=== PATIENT | female | born 2000 | race Caucasian/White ===

== ENCOUNTER 2018-06-01 07:54 | Emergency (ER) | payer MEDICAID ==
[~2018-06-01] VITALS: Ht 165.1 cm; Wt 90.0 kg
[~2018-06-01 07:54] MED LIST: AMOXICILLIN875 MG OR; NO HOME MEDS
[2018-06-01] MEDS ORDERED: ERYTHROMYCIN O3.5 GM OU (08:21)
[2018-06-01] MEDS ORDERED: ACULAR LS0.4 % OD (08:21)
[2018-06-01 08:33] VITALS: BP 118/76
== END 2018-06-01 08:41 | disposition home or self-care (01) ==
LOC: ED 07:54
DX: H10.31 Unspecified acute conjunctivitis, right eye (principal); H57.11 Ocular pain, right eye

== ENCOUNTER 2018-09-19 23:30 | Emergency (ER) | payer MEDICAID ==
[~2018-09-19] VITALS: Ht 167.6 cm; Wt 86.3 kg
[~2018-09-19 23:30] MED LIST changes: +ACULAR LS0.4 % OD; +ERYTHROMYCIN O3.5 GM OU
[2018-09-19] MEDS ORDERED: TOBRADEX 2.5 ML OS (23:58)
[2018-09-20 00:15] VITALS: BP 144/81
== END 2018-09-20 00:15 | disposition home or self-care (01) ==
LOC: ED 23:30
DX: H18.822 Corneal disorder due to contact lens, left eye (principal); H57.12 Ocular pain, left eye; X58.XXXA Exposure to other specified factors, initial encounter

== ENCOUNTER 2019-05-02 | Emergency (ER) | payer OTHER ==
[~2019-05-02] MED LIST changes: +TOBRADEX 2.5 ML OS
[2019-05-02] MEDS ORDERED: AMOXICILLIN875 MG PO (13:14)
== END 2019-05-02 13:35 | disposition home or self-care (01) | DRG 153 ==
DX: J02.9 Acute pharyngitis, unspecified (principal)